=== PATIENT | female | born 1990 | race American Indian/Alaskan Native ===

== ENCOUNTER 2017-08-04 20:52 | Emergency (ER) | payer OTHER ==
[2017-08-04 21:11] VITALS: BP 128/80; PULSE 95; RESP 20; TEMP 99; O2SAT 98
--- NOTE | 2017-08-04 21:36 | C.PDOC ---
Time Seen by Provider: 08/04/17 21:24 Chief Complaint (Nursing): Upper Extremity Problem/Injury Past Medical History Vital Signs: Last Vital Signs Temp 99 F 08/04/17 21:03 Pulse 95 H 08/04/17 21:03 Resp 20 08/04/17 21:03 BP 128/80 08/04/17 21:03 Pulse Ox 98 08/04/17 21:03 - Social History Hx Alcohol Use: Yes Hx Substance Use: No - Immunization History Hx Tetanus Toxoid Vaccination: No Hx Influenza Vaccination: No Hx Pneumococcal Vaccination: No ED Course And Treatment O2 Sat by Pulse Oximetry: 98 Disposition - Disposition
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
== END 2017-08-04 22:53 | disposition home or self-care (01) ==
LOC: C.ER 20:52
DX: S59.912A Unspecified injury of left forearm, initial encounter (principal); V49.40XA Driver injured in collision with unspecified motor vehicles in traffic accident, initial encounter
CPT/HCPCS: 73110; 96372; 99285; J1885

== ENCOUNTER 2017-09-28 18:34 | Emergency (ER) | payer MEDICAID, OTHER ==
[2017-09-28 18:41] VITALS: RESP 18
[2017-09-28 20:07] LABS: SQUAMOUS EPITHIAL 5 /hpf (0-5); URINE BACTERIA RARE (<OCC); URINE BILIRUBIN NEGATIVE (NEGATIVE); URINE BLOOD NEGATIVE (NEGATIVE); URINE CLARITY Hazy (Clear); URINE COLOR Yellow (YELLOW); URINE GLUCOSE (UA) NORMAL (Normal); URINE LEUKOCYTE ESTERASE TRACE Leu/uL (Negative); URINE PROTEIN NEGATIVE (NEGATIVE)
[2017-09-28 20:10] LABS: HCG,QUALITATIVE URINE NEGATIVE (NEGATIVE)
[2017-09-28] MEDS ORDERED: cefTRIAXone (Rocephin) 250 mg Inj IM STA (20:39)
--- NOTE | 2017-09-28 21:12 | C.PDOC ---
History Of Present Illness Pt rash on vagina and vaginal irritation/discharge. Time Seen by Provider: 09/28/17 19:35 Chief Complaint (Nursing): Female Genitourinary History Per: Patient Onset/Duration Of Symptoms: Days (about 5 days) Current Symptoms Are (Timing): Still Present Severity: Moderate Quality Of Discomfort: Burning Alleviating Factors: None Additional History Per: Prior Records Abnormal Vaginal Bleeding: No Past Medical History Reviewed: Historical Data, Nursing Documentation, Vital Signs Vital Signs: Last Vital Signs Temp 98.6 F 09/28/17 18:39 Pulse 76 09/28/17 18:39 Resp 18 09/28/17 18:39 BP 129/74 09/28/17 18:39 Pulse Ox 99 09/28/17 18:39 - Medical History PMH: No Chronic Diseases Surgical History: No Surg Hx Family History: States: Unknown Family Hx - Social History Hx Alcohol Use: Yes Hx Substance Use: No - Immunization History Hx Tetanus Toxoid Vaccination: No Hx Influenza Vaccination: No Hx Pneumococcal Vaccination: No Review Of Systems Except As Marked, All Systems Reviewed And Found Negative. Constitutional: Negative for: Fever, Weakness Cardiovascular: Negative for: Chest Pain Respiratory: Negative for: Shortness of Breath Gastrointestinal: Negative for: Vomiting, Abdominal Pain Genitourinary: Positive for: Dysuria, Vaginal Discharge, Rash Musculoskeletal: Negative for: Neck Pain, Back Pain Neurological: Negative for: Weakness, Numbness Physical Exam - Physical Exam Appears: Non-toxic, No Acute Distress Skin: Normal Color, Warm, Dry, No Rash Head: Atraumatic, Normacephalic Eye(s): bilateral: Normal Inspection, PERRL, EOMI Neck: Normal ROM, Supple Cardiovascular: Rhythm Regular Respiratory: Normal Breath Sounds, No Accessory Muscle Use Gastrointestinal/Abdominal: Soft, No Tenderness Back: No CVA Tenderness Pelvic: No Normal External Exam (painful ulcers on left labia majora), No Vaginal Bleeding, Vaginal Discharge, No Cervical Motion Tenderness, No Adnexal Tenderness, No Tender Uterus, Other (Friable cervix) Extremity: Normal ROM Neurological/Psych: Oriented x3, Normal Motor, Normal Sensation ED Course And Treatment - Laboratory Results Urine POC: Negative O2 Sat by Pulse Oximetry: 99 Pulse Ox Interpretation: Normal Progress Note: Pt will be treated for GC/Chlam and HSV. Disposition Counseled Patient/Family Regarding: Studies Performed, Diagnosis, Need For Followup, Rx Given - Disposition Referrals: [facility] [Outside] Disposition: HOME/ ROUTINE Disposition Time: 21:12 Condition: STABLE Additional Instructions: Practice safe sex (always use condoms). Follow up in the clinic for further evaluation and treatment. Return to the ER if you develop fever, abdominal pain , worsening of symptoms or if you have any other concerns. Prescriptions: Acyclovir 400 mg PO TID #21 tablet Instructions: Cervicitis (ED), Genital Herpes (DC) - Clinical Impression Clinical Impression: Herpes genitalis, Cervicitis
[2017-09-28 21:48] VITALS: BP 120/78; PULSE 88; TEMP 98.8; O2SAT 100
== END 2017-09-28 21:48 | disposition home or self-care (01) ==
LOC: C.ER 18:34
DX: A60.00 Herpesviral infection of urogenital system, unspecified (principal); N72 Inflammatory disease of cervix uteri
CPT/HCPCS: 81001; 84703; 87491; 87591; 96372; 99285; J0696